=== PATIENT | male | born 1980 | race Two or more races ===

== ENCOUNTER 2016-08-14 18:43 | Emergency (ER) | payer SELFPAY ==
[~2016-08-14] VITALS: Ht 162.6 cm; Wt 59.0 kg
[2016-08-15] MEDS ORDERED: KETOROLAC TROMETH 60MG/2ML VIAL IM ONE (07:45)
[2016-08-15 07:46] VITALS: BP 119/68
== END 2016-08-15 08:41 | disposition home or self-care (01) ==
LOC: ER 18:50
DX: S20.212A Contusion of left front wall of thorax, initial encounter (principal); M54.2 Cervicalgia; M54.9 Dorsalgia, unspecified; R10.31 Right lower quadrant pain; W18.39XA Other fall on same level, initial encounter; Y93.44 Activity, trampolining; Y99.8 Other external cause status; Y92.89 Other specified places as the place of occurrence of the external cause
CPT/HCPCS: 71250; 72125; 72128; 74176; 81002; 96372; 99284; J1885